=== PATIENT | female | born 1945 | race Caucasian/White ===

== ENCOUNTER 2016-12-15 17:11 | Emergency (ER) | payer OTHER ==
--- NOTE | 2016-12-15 17:17 | PDOC ---
History of Present Illness - General History Source: Patient, Spouse, Old Records Exam Limitations: No Limitations - History of Present Illness Initial Comments: 12/15/16 18:34 The patient is a 71 year old female, with a significant past medical history of hypertension and hyperlipidemia, who presents to the emergency department with bilateral ankle pain and swelling s/p a mechanical fall while walking her dog outside this afternoon. The patient denies any head trauma or LOC. The patient states that she was walking her dog in a wooded area when she fell into a hole in the ground that she did not see. The patient states that she only has pain when bearing weight. The patient denies any pain or injury elsewhere. The patients is at the bedside. Allergies: Levofloxacin; Penicillins. Past Surgical History: Orthopedic Surgery. Social History: Non-smoker. Reports occasional alcohol consumption. Denies drug use. <Madelin Mora - Last Filed: 12/15/16 18:55> <David Gupta - Last Filed: 12/15/16 19:14> - General Chief Complaint: Bone Injury Stated Complaint: RIGHT ANKLE INJURY Time Seen by Provider: 12/15/16 17:13 Past History <Madelin Mora - Last Filed: 12/15/16 18:55> - Past Medical History HTN: Yes Hypercholesterolemia: Yes Suicide Attempt (Hx): No - Psycho/Social/Smoking Cessation Hx Anxiety: No Suicidal Ideation: No Smoking Status: No Smoking History: Never smoked Number of Cigarettes Smoked Daily: 0 Hx Alcohol Use: Yes (SOCIALLY) Drug/Substance Use Hx: No Substance Use Type: None Hx Substance Use Treatment: No <David Gupta - Last Filed: 12/15/16 19:14> - Past Medical History Allergies/Adverse Reactions: Allergies Allergy/AdvReac Type Severity Reaction Status Date / Time levofloxacin [From Levaquin] Allergy Intermediate Swelling Verified 12/15/16 17: 15 Penicillins Allergy Unknown Verified 12/15/16 17:14 Home Medications: Ambulatory Orders Atenolol 100 mg PO DAILY 09/24/12 Ativan 1 mg PO PRN PRN 09/24/12 Simvastatin 40 mg PO DAILY 09/24/12 Ibuprofen [Motrin -] 600 mg PO QID #30 tablet 12/15/16 Review of Systems - Review of Systems Able to Perform ROS?: Yes Comments:: 12/15/16 18:45 CONSTITUTIONAL: Absent: fever, no chills, no fatigue EYES: Absent: visual changes ENT: Absent: ear pain, no sore throat CARDIOVASCULAR: Absent: chest pain, no palpitations RESPIRATORY: Absent: cough, no SOB GI: Absent: abdominal pain, no nausea, no vomiting, no constipation, no diarrhea GENITOURINARY: Absent: dysuria, no frequency, no hematuria MUSCULOSKELETAL: Present: +Bilateral ankle pain and swelling Absent: back pain, no myalgia SKIN: Absent: rash NEURO: Absent: headache <Madelin Mora - Last Filed: 12/15/16 18:55> *Physical Exam - Vital Signs Last Vital Signs Temp Pulse Resp BP Pulse Ox 97.3 F L 65 16 161/88 96 12/15/16 17:12 12/15/16 17:12 12/15/16 17:12 12/15/16 17:12 12/15/16 17:12 - Physical Exam Comments: 12/15/16 18:53 GENERAL: Well-appearing, well-nourished. No apparent distress. HEENT: Normocephalic, atraumatic. PERRL, EOM intact. CARDIOVASCULAR: Regular rate and rhythm. Normal S1, S2. PULMONARY: Clear to auscultation bilaterally. ABDOMEN: Soft, non-distended, non-tender. EXTREMITIES: Right lower extremity, no pain in dorsal forefoot, midfoot or hindfoot. No pain on lateral compression of the forefoot, midfoot or hindfoot. No ecchymosis on the plantar surface of the foot. Soft tissue swelling and tenderness of the medial ankle without bony tenderness. Left lower extremity, minimal soft tissue swelling and tenderness of the lateral ankle without bony tenderness. SKIN: Warm, dry. No rash. NEUROLOGICAL: No focal neurological deficits. <Madelin Mora - Last Filed: 12/15/16 18:55> ED Treatment Course - Medications Given in the ED: ED Medications Discontinued Medications Generic Name Dose Route Start Last Admin Trade Name Larsq PRN Reason Stop Dose Admin Ibuprofen 600 mg 12/15/16 17:25 12/15/16 17:32 Motrin - PO 12/15/16 17:26 600 mg ONCE ONE Administration <Madelin Mora - Last Filed: 12/15/16 18:55> Medical Decision Making - Medical Decision Making 12/15/16 18:[address] Nicholson at 18:28. Referred to answering service , awaiting callback. <AbbyMadelin - Last Filed: 12/15/16 18:55> - Medical Decision Making 12/15/16 17:24 The patient is well-appearing and in no acute distress There is no discreet bony tenderness in either ankle No evidence of LisFranc injury on exam Because she was unable to walk at the site of the injury, she fails the [place] ankle rules Will obtain bilateral ankle and foot films 12/15/16 18:08 X-ray emergency department interpretation: No evidence of fracture in the ankle or foot on the left side There is evidence of bimalleolar fracture of the right ankle I have placed a call to Orthopedics to request that they review the films 12/15/16 18:20 RLE short leg posterior splint as well as a sugar tong lateral stabilization is in place Ankle is elevated DP and PT pulses were full andf symetric to LLE before and after placement Capillary refill brisk and symmetric to LLE Muscle compartments soft LLE yuridia bandage is in place with ice I described the signs and symptoms of compartment syndrome to the patient and his I used lay terminology I answered all of their questions They understood and know the importance of immediate return to the ED should she develop any 12/15/16 18:59 Case discussed with orthopedics, Dr. Abdulaziz Conrad He has reviewed the films I discussed the options for placement on observation and anticipated surgical repair in the morning versus discharge and prompt scheduling of operative management with the patient and her . They're strong preference was for discharge. The patient does not want opiate pain medication. 12/15/16 19:13 Orthopedics has reviewed the film They do not see any bony abnormality in the left foot and ankle They confirmed bimalleolar fracture in the right lower extremity They suggest outpatient follow-up for interval repair The patient again adamantly requests discharge, and refuses opiate pain medications Clinical impression: Right bimalleolar ankle fracture Left talofibular ankle sprain I discussed the physical exam findings, ancillary test results and final diagnoses with the patient. I answered all of the patient's questions. The patient was satisfied with the care received and felt comfortable with the discharge plan and treatment plan. The patient will call their primary care physician within 24 hours to arrange follow-up and will return to the Emergency Department with any new, persistent or worsening symptoms. A portion of this note was documented by scribe services under my direction. I have reviewed the details of the note, within reason, and agree with the documentation with the following case summary and management plan written by me. 12/15/16 19:13 <David Gupta - Last Filed: 12/15/16 19:14> *DC/Admit/Observation/Transfer - Attestations Scribe Attestion: 12/15/16 17:37 Documentation prepared by Madelin Mora, acting as forensic medical examiner for David Gupta MD. <Madelin Mora - Last Filed: 12/15/16 18:55> <David Gupta - Last Filed: 12/15/16 19:14> Diagnosis at time of Disposition: Ankle sprain, Ankle fracture - Discharge Dispostion Disposition: HOME Condition at time of disposition: Improved - Prescriptions Prescriptions: Ibuprofen [Motrin -] 600 mg PO QID #30 tablet - Referrals Referrals: Joce Nicholson MD [Staff Physician] - Call tomorrow (Call the office tomorrow to arrange an appointment: Chidi Nunez [phone]) - Patient Instructions Printed Discharge Instructions: DI for Ankle Sprain, DI for Ankle Pain, DI for Ankle Fracture Additional Instructions: Return to the emergency department immediately with ANY new, persistent or worsening symptoms. You MUST call and follow up with your doctor tomorrow. Please make sure your doctor reviews the results of your emergency department evaluation.
[2016-12-15] MEDS ORDERED: IBUPROFEN 400 MG TABLET (FP) PO ONE (17:25)
[2016-12-15 17:26] VITALS: BP 161/88; PULSE 65; TEMP 97.3; BMI 27.4
[2016-12-15] MEDS ORDERED: IBUPROFEN 600 MG TABLET (FP) PO ONE (17:31)
== END 2016-12-15 19:33 | disposition home or self-care (01) ==
LOC: FER 17:11
DX: S82.854A Nondisplaced trimalleolar fracture of right lower leg, initial encounter for closed fracture (principal); W17.2XXA Fall into hole, initial encounter; Y93.K1 Activity, walking an animal; Y92.9 Unspecified place or not applicable; Y99.9 Unspecified external cause status; I10 Essential (primary) hypertension; E78.00 Pure hypercholesterolemia, unspecified
CPT/HCPCS: 73610-TC-LT; 73610-TC-RT; 73630-TC-LT; 73630-TC-RT; 99283-25

== ENCOUNTER 2020-09-14 17:38 | Inpatient (IN) | payer OTHER ==
[2020-09-14] MEDS ORDERED: IBUPROFEN 400 MG TABLET (FP) PO ONE (18:02)
[2020-09-14] MEDS ORDERED: IBUPROFEN 800 MG/8 ML IJ IVPB ONE ×2 (18:05→18:10)
[2020-09-14 19:18] LABS: RDW 12.8 % (11.6-15.6)
[2020-09-14 19:21] LABS: BASO % 0.3 % (0-2.0); EOS % 0.3 % (0-4.5); HEMATOCRIT 38.1 % (32.4-45.2); HEMOGLOBIN 12.9 GM/dl (10.7-15.3); MCHC 33.9 g/dl (32.0-36.0); MEAN CELL VOLUME 100.3 fl (80-96); MEAN PLT VOLUME 8.6 fl (7.5-11.1); MONO % 6.1 % (3.8-10.2); NEUT % 87.3 % (42.8-82.8); PLATELET COUNT 197 K/MM3 (134-434); WHITE BLOOD COUNT 10.4 K/mm3 (4.0-10.8)
[2020-09-14 19:28] LABS: INR 1.04 (0.82-1.09); PROTHROMBIN TIME (PATIENT) 11.6 SEC (10.2-13.0)
[2020-09-14 19:33] LABS: ALBUMIN 4.1 g/dl (3.4-5.0); BILIRUBIN,TOTAL 0.9 mg/dl (0.2-1); CREATININE 0.7 mg/dl (0.55-1.3); TOT PROT 7.2 g/dl (6.4-8.2)
[2020-09-14] MEDS ORDERED: DEXTROSE 5%-0.45% SALINE 1,000 ML IV SCH (21:45)
[2020-09-14] MEDS ORDERED: LORazepam 2 MG TABLET PO ONE (22:13)
[2020-09-14] MEDS ORDERED: LORazepam 0.5 MG TABLET ONE (22:15)
[2020-09-14] MEDS ORDERED: LORazepam 1 MG TABLET PO PRN (23:20)
[2020-09-15] MEDS ORDERED: LACTATED RINGERS SOLUTION 1,000 ML/1,000 ML INFUS.BAG IV SCH (00:15)
[2020-09-15 00:26] VITALS: BMI 32.3
[2020-09-15] MEDS: ACETAMINOPHEN 1000 MG/100 ML VIAL (NON FORMULARY) IVPB PRN ×4 (06:43→18:18)
[2020-09-15] MEDS ORDERED: ATENOLOL 50 MG TABLET (FP) PO ONE (07:31)
[2020-09-15 07:57] LABS: BASO % 0.4 % (0-2.0); EOS % 0.6 % (0-4.5); HEMATOCRIT 33.8 % (32.4-45.2); HEMOGLOBIN 11.1 GM/dl (10.7-15.3); LYMPH % 10.7 % (8-40); MCH 33.3 pg (25.7-33.7); MCHC 32.7 g/dl (32.0-36.0); MEAN CELL VOLUME 101.8 fl (80-96); MEAN PLT VOLUME 8.3 fl (7.5-11.1); MONO % 13.1 % (3.8-10.2); NEUT % 75.2 % (42.8-82.8); PLATELET COUNT 161 K/MM3 (134-434); RBC 3.32 M/mm3 (3.60-5.2); RDW 12.6 % (11.6-15.6); WHITE BLOOD COUNT 6.3 K/mm3 (4.0-10.8)
[2020-09-15 08:06] LABS: ALBUMIN 3.4 g/dl (3.4-5.0); BILIRUBIN,TOTAL 1.1 mg/dl (0.2-1); CALCIUM 8.1 mg/dl (8.5-10); CREATININE 0.6 mg/dl (0.55-1.3); POTASSIUM 3.5 mmol/L (3.5-5.1); TOT PROT 5.8 g/dl (6.4-8.2)
[2020-09-15] MEDS: ANASTROZOLE 1 MG TABLET PO SCH (09:11)
[2020-09-15] MEDS: ATENOLOL 50 MG TABLET (FP) PO SCH (09:11)
[2020-09-15] MEDS ORDERED: MIDAZOLAM HCL 2 MG/2 ML SINGLE DOSE VIAL ONE ×2 (09:17→09:39)
[2020-09-15] MEDS ORDERED: EPHEDRINE SULFATE/0.9% NACL/PF 50 MG/10 ML SYRINGE NR ONE (09:23)
[2020-09-15 09:26] LABS: CALCIUM 8.2 mg/dl (8.5-10); CREATININE 0.6 mg/dl (0.55-1.3); POTASSIUM 3.6 mmol/L (3.5-5.1)
[2020-09-15] MEDS ORDERED: CLINDAMYCIN PHOSPHATE 600 MG/4 ML VIAL ONE (09:26)
[2020-09-15] MEDS ORDERED: DEXAMETHASONE SOD PHOSPHATE 4 MG/1 ML VIAL ONE (11:28)
[2020-09-15] MEDS ORDERED: ONDANSETRON 4 MG/2 ML VIAL IVPUSH PRN ×2 (11:28→11:37)
[2020-09-15] MEDS ORDERED: MAGNESIUM HYDROX 2400MG/30ML ORAL SUSPENSION 30 ML CUP PO PRN (11:28)
[2020-09-15] MEDS ORDERED: MAG HYDROX/AL HYDROX/SIMETH 30 ML UNIT-DOSE CUP PO PRN (11:28)
[2020-09-15] MEDS ORDERED: LACTATED RINGERS SOLUTION 1,000 ML IV SCH ×2 (11:30→11:45)
[2020-09-15] MEDS ORDERED: oxyCODONE HCL 5 MG TABLET PO PRN (11:37)
[2020-09-15] MEDS ORDERED: ACETAMINOPHEN 1000 MG/100 ML VIAL (NON FORMULARY) IVPB ONE (11:39)
[2020-09-15 11:56] LABS: BASO % 0.3 % (0-2.0); EOS % 0.3 % (0-4.5); HEMATOCRIT 32.3 % (32.4-45.2); LYMPH % 8.3 % (8-40); MCH 34.2 pg (25.7-33.7); MCHC 34.1 g/dl (32.0-36.0); MEAN CELL VOLUME 100.3 fl (80-96); MEAN PLT VOLUME 8.1 fl (7.5-11.1); MONO % 8.2 % (3.8-10.2); NEUT % 82.9 % (42.8-82.8); PLATELET COUNT 147 K/MM3 (134-434); RBC 3.23 M/mm3 (3.60-5.2); RDW 12.5 % (11.6-15.6); WHITE BLOOD COUNT 6.6 K/mm3 (4.0-10.8)
[2020-09-15] MEDS: CLINDAMYCIN 900 MG PREMIX IVPB 900 MG/50 ML BAG IVPB SCH (18:19)
[2020-09-15] MEDS: LORazepam 1 MG TABLET PO PRN (19:59)
[2020-09-15] MEDS: oxyCODONE HCL 5 MG TABLET PO PRN ×2 (21:13→23:51)
[2020-09-15] MEDS: GABAPENTIN 300 MG CAPSULE PO SCH (21:14)
[2020-09-15] MEDS: SENNOSIDES/DOCUSATE COMBO (SENNA PLUS) TABLET (UD) PO SCH ×2 (21:14→21:26)
[2020-09-15] MEDS ORDERED: ATORVASTATIN CA 20 MG TABLET (FP) PO SCH ×2 (22:00)
[2020-09-16] MEDS: CLINDAMYCIN 900 MG PREMIX IVPB 900 MG/50 ML BAG IVPB SCH ×2 (01:04→09:34)
[2020-09-16 08:07] LABS: HEMATOCRIT 28.6 % (32.4-45.2); HEMOGLOBIN 9.7 GM/dl (10.7-15.3); MCHC 33.8 g/dl (32.0-36.0); MEAN CELL VOLUME 100.4 fl (80-96); MEAN PLT VOLUME 8.7 fl (7.5-11.1); PLATELET COUNT 148 K/MM3 (134-434); RBC 2.85 M/mm3 (3.60-5.2); RDW 12.4 % (11.6-15.6); WHITE BLOOD COUNT 7.6 K/mm3 (4.0-10.8)
[2020-09-16 08:10] LABS: CREATININE 0.6 mg/dl (0.55-1.3); POTASSIUM 3.6 mmol/L (3.5-5.1)
[2020-09-16] MEDS ORDERED: PT OWN MED DRAWER 7, Y5N ONE ×2 (08:23→08:31)
[2020-09-16] MEDS: oxyCODONE HCL 5 MG TABLET PO PRN ×2 (08:28→21:57)
[2020-09-16] MEDS ORDERED: SODIUM CHLORIDE 1,000 ML IV SCH (08:45)
[2020-09-16] MEDS: SENNOSIDES/DOCUSATE COMBO (SENNA PLUS) TABLET (UD) PO SCH ×2 (09:34→21:57)
[2020-09-16] MEDS: ANASTROZOLE 1 MG TABLET PO SCH (09:34)
[2020-09-16] MEDS: PANTOPRAZOLE 40 MG TABLET PO SCH (09:34)
[2020-09-16] MEDS: ASPIRIN 325 MG TABLET PO SCH ×2 (09:35→21:57)
[2020-09-16] MEDS: GABAPENTIN 300 MG CAPSULE PO SCH ×2 (09:35→21:57)
[2020-09-16] MEDS: MULTIVITAMINS (DAILY MVI) TABLET (FP) PO SCH (09:35)
[2020-09-16] MEDS: ATENOLOL 50 MG TABLET (FP) PO SCH (09:44)
[2020-09-16] MEDS: SIMVASTATIN 40 MG PO SCH (11:07)
[2020-09-16] MEDS: ACETAMINOPHEN 325 MG TABLET (FP) PO PRN (15:51)
[2020-09-16] MEDS ORDERED: oxyCODONE HCL 5 MG TABLET PO PRN (16:00)
[2020-09-16 18:27] LABS: CALCIUM 7.9 mg/dl (8.5-10); CREATININE 0.7 mg/dl (0.55-1.3); POTASSIUM 3.9 mmol/L (3.5-5.1)
[2020-09-16] MEDS: LORazepam 1 MG TABLET PO PRN (19:47)
[2020-09-16 23:29] LABS: CREATININE 0.6 mg/dl (0.55-1.3); POTASSIUM 4.1 mmol/L (3.5-5.1)
[2020-09-17] MEDS: LORazepam 1 MG TABLET PO PRN (02:25)
[2020-09-17] MEDS ORDERED: PT OWN MED DRAWER 7, Y5N ONE ×2 (07:40→09:30)
[2020-09-17 08:41] LABS: BASO % 1.2 % (0-2.0); EOS % 3.2 % (0-4.5); HEMATOCRIT 27.6 % (32.4-45.2); HEMOGLOBIN 9.2 GM/dl (10.7-15.3); LYMPH % 13.5 % (8-40); MCH 33.4 pg (25.7-33.7); MCHC 33.4 g/dl (32.0-36.0); MEAN CELL VOLUME 99.9 fl (80-96); MEAN PLT VOLUME 8.9 fl (7.5-11.1); MONO % 13.8 % (3.8-10.2); NEUT % 68.3 % (42.8-82.8); PLATELET COUNT 123 K/MM3 (134-434); RBC 2.76 M/mm3 (3.60-5.2); RDW 12.8 % (11.6-15.6); WHITE BLOOD COUNT 5.3 K/mm3 (4.0-10.8)
[2020-09-17 09:09] LABS: ALBUMIN 2.9 g/dl (3.4-5.0); BILIRUBIN,TOTAL 0.6 mg/dl (0.2-1); CREATININE 0.5 mg/dl (0.55-1.3); MAGNESIUM 1.8 mg/dL (1.8-2.4); POTASSIUM 4.1 mmol/L (3.5-5.1); TOT PROT 5.1 g/dl (6.4-8.2)
[2020-09-17] MEDS: ASPIRIN 325 MG TABLET PO SCH ×2 (09:09→21:44)
[2020-09-17] MEDS: ANASTROZOLE 1 MG TABLET PO SCH (09:09)
[2020-09-17] MEDS: ATENOLOL 50 MG TABLET (FP) PO SCH (09:09)
[2020-09-17] MEDS: PANTOPRAZOLE 40 MG TABLET PO SCH (09:10)
[2020-09-17] MEDS: GABAPENTIN 300 MG CAPSULE PO SCH ×2 (09:10→21:44)
[2020-09-17] MEDS: SENNOSIDES/DOCUSATE COMBO (SENNA PLUS) TABLET (UD) PO SCH ×2 (09:10→22:43)
[2020-09-17] MEDS: MULTIVITAMINS (DAILY MVI) TABLET (FP) PO SCH (09:10)
[2020-09-17] MEDS: SIMVASTATIN 40 MG PO SCH (09:10)
[2020-09-17] MEDS: ACETAMINOPHEN 325 MG TABLET (FP) PO PRN (10:26)
[2020-09-17] MEDS: oxyCODONE HCL 5 MG TABLET PO PRN (10:36)
[2020-09-17 18:34] LABS: CALCIUM 8.2 mg/dl (8.5-10); CREATININE 0.6 mg/dl (0.55-1.3)
[2020-09-17] MEDS ORDERED: diphenhydrAMINE HCL 25 MG CAPSULE (FP) PO ONE (22:00)
[2020-09-18 08:04] LABS: HEMATOCRIT 27.5 % (32.4-45.2); HEMOGLOBIN 9.6 GM/dl (10.7-15.3); MCH 35.1 pg (25.7-33.7); MCHC 34.8 g/dl (32.0-36.0); MEAN PLT VOLUME 9.1 fl (7.5-11.1); PLATELET COUNT 145 K/MM3 (134-434); RBC 2.72 M/mm3 (3.60-5.2); RDW 12.6 % (11.6-15.6); WHITE BLOOD COUNT 5.4 K/mm3 (4.0-10.8)
[2020-09-18 08:11] LABS: CREATININE 0.4 mg/dl (0.55-1.3); MAGNESIUM 1.8 mg/dL (1.8-2.4); PHOSPHOROUS 3.6 mg/dl (2.5-4.9); POTASSIUM 3.8 mmol/L (3.5-5.1)
[2020-09-18] MEDS: oxyCODONE HCL 5 MG TABLET PO PRN (08:55)
[2020-09-18] MEDS ORDERED: PT OWN MED DRAWER 7, Y5N ONE ×2 (09:06→13:02)
[2020-09-18] MEDS: ATENOLOL 50 MG TABLET (FP) PO SCH (09:13)
[2020-09-18] MEDS: ANASTROZOLE 1 MG TABLET PO SCH (09:13)
[2020-09-18] MEDS: GABAPENTIN 300 MG CAPSULE PO SCH (09:13)
[2020-09-18] MEDS: MULTIVITAMINS (DAILY MVI) TABLET (FP) PO SCH (09:13)
[2020-09-18] MEDS: SIMVASTATIN 40 MG PO SCH (09:13)
[2020-09-18] MEDS: ASPIRIN 325 MG TABLET PO SCH (09:13)
[2020-09-18] MEDS: SENNOSIDES/DOCUSATE COMBO (SENNA PLUS) TABLET (UD) PO SCH (09:16)
[2020-09-18] MEDS: PANTOPRAZOLE 40 MG TABLET PO SCH (09:16)
[2020-09-18 14:23] VITALS: BP 128/67; PULSE 75; TEMP 98.2
== END 2020-09-18 14:54 | disposition home or self-care (01) | DRG 481 ==
LOC: FER 17:38 → FM/S 22:38
PROVIDERS: ADMIT Internal Medicine; ATTEND Nurse Practitioner Acute Care
PROC: 0QS706Z Reposition Left Upper Femur with Intramedullary Internal Fixation Device, Open Approach (ICD-10-PCS; principal; 2020-09-15 10:38)
DX: S72.142A Displaced intertrochanteric fracture of left femur, initial encounter for closed fracture (principal); E87.0 Hyperosmolality and hypernatremia; D62 Acute posthemorrhagic anemia; I10 Essential (primary) hypertension; E78.5 Hyperlipidemia, unspecified; W18.39XA Other fall on same level, initial encounter; Y92.488 Other paved roadways as the place of occurrence of the external cause; C50.919 Malignant neoplasm of unspecified site of unspecified female breast; F41.8 Other specified anxiety disorders
CPT/HCPCS: 36415; 71045-TC-FY; 73502-TC-LT-FY; 73523-TC-FY; 73552-TC-LT-FY; 80048; 80053; 81003; 81015; 83735; 84100; 85025; 85027; 85610; 86850; 86900; 86901; 93005; 94760; 97116-GP; 97162-GP; 99285-25; C9803; J0131; U0003; U0005

== ENCOUNTER 2021-05-28 14:00 | Emergency (ER) | payer OTHER ==
[2021-05-28 14:47] VITALS: BP 177/76; PULSE 60; TEMP 98.2; BMI 29.1
== END 2021-05-28 15:26 | disposition home or self-care (01) ==
LOC: FER 14:00
DX: M54.50 Low back pain, unspecified (principal)
CPT/HCPCS: 72100-TC-FY; 73502-TC-LT-FY; 99284-25

== ENCOUNTER 2023-09-13 15:37 | Emergency (ER) | payer OTHER ==
[2023-09-13 15:59] VITALS: BMI 27.4
[2023-09-13 16:10] VITALS: RESP 18
[2023-09-13 18:17] LABS: HEMATOCRIT 39.8 % (32.4-45.2); HEMOGLOBIN 13.5 G/dL (10.7-15.3); MCH 33.5 pg (25.7-33.7); MCHC 33.8 g/dl (32.0-36.0); MEAN PLT VOLUME 9.1 fl (7.5-11.1); PLATELET COUNT 123.3 10^3/uL (134-434); RBC 4.02 10^6/uL (3.60-5.2); RDW 14.9 % (11.6-15.6); WHITE BLOOD COUNT 5.9 10^3/uL (4.0-10.8)
[2023-09-13 18:41] LABS: ALBUMIN 4.3 g/dl (3.4-5.0); BILIRUBIN,TOTAL 1.1 mg/dl (0.2-1); CALCIUM 9.2 mg/dl (8.5-10.1); CREATININE 0.7 mg/dl (0.6-1.3); EPITHELIAL CELLS 0-5 /hpf; POTASSIUM 4.2 mmol/L (3.5-5.1); TOT PROT 6.9 g/dl (6.4-8.2)
[2023-09-13] MEDS ORDERED: ASPIRIN 81 MG CHEWABLE TABLETS ONE (20:17)
[2023-09-13] MEDS ORDERED: ATORVASTATIN CA 80 MG TABLET (FP) ONE (20:17)
[2023-09-13] MEDS ORDERED: SULFAMETHOXAZOLE/TRIMETHOPRIM 800MG/160MG D.S. TABLET ONE (20:18)
[2023-09-13] MEDS: ATORVASTATIN CA 80 MG TABLET (FP) PO ONE (20:22)
[2023-09-13] MEDS: SULFAMETHOXAZOLE/TRIMETHOPRIM 800MG/160MG D.S. TABLET PO ONE (20:22)
[2023-09-13] MEDS: ASPIRIN 81 MG CHEWABLE TABLETS PO ONE (20:22)
[2023-09-14 04:38] VITALS: BP 178/119; PULSE 102; TEMP 98.1
== END 2023-09-13 22:05 | disposition admitted as inpatient to this hospital (09) ==
LOC: FER 15:37
DX: R41.0 Disorientation, unspecified (principal); I63.531 Cerebral infarction due to unspecified occlusion or stenosis of right posterior cerebral artery; N30.90 Cystitis, unspecified without hematuria
CPT/HCPCS: 36415; 70450-TC; 71045-TC-FY; 80053; 81003; 81015; 84484; 85027; 87086; 87186; 93005; 99291